=== PATIENT | female | born 1975 | race Caucasian/White ===

== ENCOUNTER 2024-05-06 13:45 | Outpatient (RCR) | payer OTHER, SELFPAY | END 2024-07-16 10:59 | disposition home or self-care (01) | PROVIDERS: PCP Family Medicine; Visit Provider Family Medicine | DX: M25.562 Pain in left knee (principal); M25.511 Pain in right shoulder; Z51.89 Encounter for other specified aftercare | CPT/HCPCS: 97110; 97161 ==